=== PATIENT | female | born 1955 | race Caucasian/White ===

== ENCOUNTER 2024-06-01 12:29 | Emergency (ER) | payer OTHER, SELFPAY ==
[2024-06-01 12:30] VITALS: BP 163/98
[2024-06-01 12:48] VITALS: BMI 22.4
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
[2024-06-01] MEDS: IMITREX 100 MG PO (13:50)
[2024-06-01] MEDS: DECADRON 10 MG PO (13:51)
[2024-06-01] MEDS: MOTRIN 600 MG PO (13:51)
[2024-06-01 13:54] VITALS: BP 144/78
[2024-06-01 14:00] VITALS: BP 146/80
[2024-06-01 15:00] VITALS: BP 143/80
== END 2024-06-01 15:15 | disposition home or self-care (01) ==
LOC: EMR 12:29
PROVIDERS: EMERGENCY PHYSICIAN Student in an Organized Health Care Education/Training Program; FAMILY PHYSICIAN Family Medicine
DX: M47.812 Spondylosis without myelopathy or radiculopathy, cervical region (principal); M25.59 Pain in other specified joint; M54.2 Cervicalgia; G43.909 Migraine, unspecified, not intractable, without status migrainosus
CPT/HCPCS: 99284; 72050; 73030; 93005

== ENCOUNTER → 2024-06-14 07:18 | Outpatient (REF) | payer OTHER, SELFPAY | LOC: MRI 07:18 | PROVIDERS: ATTENDING PHYSICIAN Physician Assistant; FAMILY PHYSICIAN Family Medicine | DX: M54.12 Radiculopathy, cervical region (principal) | CPT/HCPCS: 72141 ==

== ENCOUNTER → 2025-08-15 12:08 | Outpatient (REF) | payer OTHER, SELFPAY | LOC: WDC 12:08 | PROVIDERS: ATTENDING PHYSICIAN Physician Assistant Medical | DX: Z12.31 Encounter for screening mammogram for malignant neoplasm of breast (principal) | CPT/HCPCS: 77063; 77067 ==